=== PATIENT | female | born 1930 | race Caucasian/White ===

== ENCOUNTER 2017-10-23 15:37 | Observation (INO) ==
[2017-10-23] MEDS ORDERED: SALINE FLUSH 10ml SYRINGE IVF PRN (16:00)
--- NOTE | 2017-10-23 16:06 | Emergency Department Report ---
General Adult HPI - General Chief complaint: Medical Emergency Stated complaint: sharp pain from eat to tooth Time Seen by Provider: 10/23/17 15:52 Source: patient, EMS Mode of arrival: EMS Limitations: no limitations - History of Present Illness HPI narrative: 87-year-old female presents to the emergency department with a chief complaint of generalized weakness and subjective fever. Patient also notes that she had dental extractions done in the past week to the right upper jaw and notes mild discomfort in that area locally. Discomfort is dull and without radiation. She reports that she was so weak that she needed help getting out of her chair earlier today. She denies any trauma or injury. No other complaints or associated symptoms. She was at home when her symptoms began earlier in the day. Symptoms have been persistent in nature since onset. - Related Data Home Medications Medication Instructions Recorded Confirmed Amiodarone [Pacerone] 100 mg PO DAILY #0 07/27/13 10/23/17 Bumetanide 1 mg PO MOFR #0 07/27/13 10/23/17 Levothyroxine Sodium 75 mcg PO DAILY #0 07/28/13 10/23/17 Rivaroxaban [Xarelto] 15 mg PO DAILY 10/23/17 10/23/17 Systane Eye Drops 1 drop EACH EYE DAILY PRN 10/23/17 10/23/17 Previous Rx's Medication Instructions Recorded Doxycycline [Vibramycin] 100 mg PO BIDWM 4 Days #8 tab 10/24/17 Allergies Allergy/AdvReac Type Severity Reaction Status Date / Time amoxicillin Allergy Unknown Verified 06/19/17 12:21 hydrochlorothiazide Allergy Verified 10/23/17 16:06 Hdgzmpx-Klw-Cud Reductase AdvReac Unknown MUSCLE Verified 10/23/17 16:06 Inhibitor PAINS losartan potassium Allergy Uncoded 06/19/17 12:21 Review of Systems Constitutional: Reports: fever (subjective), weakness (generalized) Eyes: Denies: eye pain, vision change ENT: Denies: ear pain, throat pain Cardiovascular: Denies: chest pain, palpitations Respiratory: Denies: cough, dyspnea Gastrointestinal: Denies: abdominal pain, nausea, vomiting, diarrhea Genitourinary: Denies: urgency, dysuria Musculoskeletal: Denies: back pain, arthralgia Integumentary: Denies: erythema, rash Neurological: Denies: headache, numbness Psychiatric: Denies: anxiety, depression Endocrine: Denies: fatigue, heat or cold intolerance Hematological/Lymphatic: Denies: easy bleeding, easy bruising Allergic/Immunologic: Denies: facial swelling, urticaria PFSH Patient Stated Medical History Cerebrovascular Accident No Paralysis No Seizures No Syncope No Cataracts Yes: TEQUILA. Angina Yes: SEEN DR MUSTAFA MARCH 2017 Cardiac Arrhythmia Yes: Afib- no slow heart beat. Congestive Heart Failure Yes Coronary Artery Disease Yes Hypertension Yes Other Cardiology Yes: SLOW HR-SEES MOON Asthma No Bronchitis No Chronic Obstructive Pulmonary No Disease (COPD) Pneumonia No Pulmonary Edema No Pulmonary Embolism No Sleep Apnea No Tuberculosis No Other Respiratory No Diabetes Mellitus Type 1 No Diabetes Mellitus Type 2 No Cirrhosis No Gastroesophageal Reflux No Disease Gastrointestinal Bleeding No Hepatitis No Hiatal Hernia No Obstructive Bowel No Ulcer No Other GI No Hx Kidney Stones Yes Hx Renal Disease Yes: STAGE 3 CKD Hx Urinary Tract Infection Yes: HX OF Other Yes: PROLAPSED BLADDER Clotting Problems Yes: TAKES COUMADIN Osteoarthritis No Other Musculoskeletal No Anesthesia Reactions No Blood Transfusions No Chemotherapy No Malignant Hyperthermia No Other No Depression No Fibroids Yes Now No Surgical History: Oral surgery Family History: Reviewed and Noncontributory. - Social History Smoking status: Never smoker Substance use type: does not use Alcohol intake frequency: does not drink Does patient use chewing tobacco?: No Physical Exam - Limitations Limitations: no limitations - General General appearance: alert, in no apparent distress - Normal Exams: Head:: Normocephalic without trauma Eyes:: Pupils are PERRLA w/ EOMI, No scleral icterus, irritation, or foreign bodies noted ENMT:: No facial trauma, nasal exudates, pharyngeal erythema, or exudates are noted (Surgical site is clean dry and intact without sign of infection.) Dental: No fractured, loose, or missing teeth noted Neck:: Full range of motion, without adenopathy, JVD, bruits or thyromegaly Chest/Respirations:: Clear all faust (coarse breath sounds in bilateral lower lobes), with good airflow, and symmetry bilaterally Cardiovascular:: Regular rate and rhythm, without murmur or gallop, Pulses 2+ all extremities, capillary refill, <2 seconds all extremities Abdomen:: Bowel sounds positive, soft, non-tender, non-distended, no hepatosplenomegaly, masses or bruits noted Lymphatic:: No lymphadenopathy, or lymphedema noted Musculoskeletal:: No tenderness, or deformity noted, good range of motion, all extremities Integumentary:: No rashes, hives, or bruising noted, hair and nails, without abnormality Neurological:: Patient is alert, and oriented, cranial nerves, motor/sensory/ cerebellar, exams w/o gross deficits, to observation Psychiatric:: Patient exhibits, appropriate attention, emotion and affect Course Vital Signs Temperature 99.9 F 10/23/17 15:38 Pulse Rate 99 10/23/17 15:38 Respiratory Rate 18 10/23/17 15:38 Blood Pressure 169/96 H 10/23/17 15:38 Pulse Oximetry 94 10/23/17 15:38 Temperature 99.0 F 10/24/17 09:02 Pulse Rate 79 10/24/17 09:02 Respiratory Rate 16 10/24/17 09:02 Blood Pressure 161/94 H 10/24/17 09:02 Pulse Oximetry 96 10/24/17 09:02 Medical Decision Making - [facility] Narrative Medical decision making narrative: Labs/imaging were discussed in detail with the patient and family and questions are answered. Patient appears to have a right lower lobe infiltrate. Patient is given Doxycycline 100 mg iv x 1 at 1655 when CXR is reviewed and sepsis is considered. Patient lives at home with her severely demented and both the patient and her family feel like she is unsafe at home. Risks versus benefit of keeping the patient and the hospitalist discussed in detail with the patient and family and questions are answered. Patient and family both requests to remain in the hospital for observation status. Patient is admitted to the service of Dr. Rivas in improved condition. No further orders from accepting physician is in agreement with the current plan of management. Patient is given Doxycycline 100 mg iv x 1 at 1655 when CXR is reviewed and sepsis is considered. - Differential Diagnosis generalized weakness, viral syndrome, PNA, UTI - Lab Data Result diagrams: 10/24/17 04:33 10/24/17 04:33 Lab Results 10/23/17 10/23/17 10/23/17 Range/Units 16:45 16:45 16:45 WBC 8.9 (4.5-11.0) T/MM3 RBC 4.58 (4.00-5.20) M/MM3 Hgb 14.9 (12-16) GM/DL Hct 43.7 (36-46) % MCV 95.4 (80-100) UM3 MCH 32.5 (26-34) UUG MCHC 34.1 (31-37) GM/DL RDW Std Deviation 42.2 (36.9-50.2) FL Plt Count 157 (130-400) T/MM3 MPV 9.4 (9.4-12.4) UM3 Immature Gran % (Auto) Not performed Neut % (Auto) Not performed Lymph % (Auto) Not performed Laporte % (Auto) Not performed Eos % (Auto) Not performed Baso % (Auto) Not performed Neut # (Auto) Not performed Lymph # (Auto) Not performed Laporte # (Auto) Not performed Eos # (Auto) Not performed Baso # (Auto) Not performed Abs Immat Gran (auto) Not performed Neutrophils % (Manual) 84.0 H (33-66) % Band Neutrophils % 1.0 (0-6) % Lymphocytes % (Manual) 12.0 L (23-45) % Monocytes % (Manual) 3.0 (0-9.0) % Neutrophils # (Manual) 7.5 (1.8-7.7) T/MM3 Band Neutrophils # 0.1 T/MM3 Lymphocytes # (Manual) 1.1 (1-4.8) T/MM3 Monocytes # (Manual) 0.3 (0-0.8) T/MM3 RBC Morph Comment Normal INR (0.99-1.21) Turbidity < 20 (0-20) Sodium 135 (134-144) MEQ/L Potassium 3.3 L (3.6-5) MEQ/L Chloride 97 L (98-107) MEQ/L Carbon Dioxide 26 (22-30) MEQ/L Anion Gap 12 (5-15) MEQ/L BUN 9.0 (7-17) MG/DL Creatinine 0.9 (0.7-1.2) MG/DL GFR Calculation 59 BUN/Creatinine Ratio 10 (6-26) RATIO Glucose 119 H (65-110) MG/DL Calculated Osmolality 260 L (261-280) MOSM/KG Calcium 10.1 (8.4-10.2) MG/DL Total Bilirubin 1.10 (0.20-1.30) MG/DL Icterus Index < 2 (0-7) AST 21 (14-36) U/L ALT 37 (9-52) U/L Alkaline Phosphatase 101 (38-126) U/L Troponin I 0.072 (0-0.12) ng/ml Total Protein 7.9 (6.3-8.2) G/DL Albumin 4.7 (3.5-5.0) G/DL Globulin 3.2 (2.4-3.6) G/DL Albumin/Globulin Ratio 1.5 (1.1-2.2) RATIO Plasma Lactate 1.4 (0.6-2.2) MMOL/L Procalcitonin 0.06 NG/ML Specimen Hemolysis < 15 (0-25) 10/23/ Range/Units 16:49 WBC (4.5-11.0) T/MM3 RBC (4.00-5.20) M/MM3 Hgb (12-16) GM/DL Hct (36-46) % MCV (80-100) UM3 MCH (26-34) UUG MCHC (31-37) GM/DL RDW Std Deviation (36.9-50.2) FL Plt Count (130-400) T/MM3 MPV (9.4-12.4) UM3 Immature Gran % (Auto) Neut % (Auto) Lymph % (Auto) Laporte % (Auto) Eos % (Auto) Baso % (Auto) Neut # (Auto) Lymph # (Auto) Laporte # (Auto) Eos # (Auto) Baso # (Auto) Abs Immat Gran (auto) Neutrophils % (Manual) (33-66) % Band Neutrophils % (0-6) % Lymphocytes % (Manual) (23-45) % Monocytes % (Manual) (0-9.0) % Neutrophils # (Manual) (1.8-7.7) T/MM3 Band Neutrophils # T/MM3 Lymphocytes # (Manual) (1-4.8) T/MM3 Monocytes # (Manual) (0-0.8) T/MM3 RBC Morph Comment INR 1.08 (0.99-1.21) Turbidity (0-20) Sodium (134-144) MEQ/L Potassium (3.6-5) MEQ/L Chloride (98-107) MEQ/L Carbon Dioxide (22-30) MEQ/L Anion Gap (5-15) MEQ/L BUN (7-17) MG/DL Creatinine (0.7-1.2) MG/DL GFR Calculation BUN/Creatinine Ratio (6-26) RATIO Glucose (65-110) MG/DL Calculated Osmolality (261-280) MOSM/KG Calcium (8.4-10.2) MG/DL Total Bilirubin (0.20-1.30) MG/DL Icterus Index (0-7) AST (14-36) U/L ALT (9-52) U/L Alkaline Phosphatase (38-126) U/L Troponin I (0-0.12) ng/ml Total Protein (6.3-8.2) G/DL Albumin (3.5-5.0) G/DL Globulin (2.4-3.6) G/DL Albumin/Globulin Ratio (1.1-2.2) RATIO Plasma Lactate (0.6-2.2) MMOL/L Procalcitonin NG/ML Specimen Hemolysis (0-25) - Radiology Data CT Head - No acute processes. CT Maxillofacial - No acute processes. CXR - RLL infiltrate otherwise no acute processes. - EKG Data EKG #1 EKG results narrative: Sinus rhythm. Left axis deviation. Left bundle branch block. No STEMI. 98 bpm. History of left bundle branch block noted on EKG from 07/28/13. Disposition Clinical Impression: PNEUMONIA Disposition: 02 To [facility] Condition: Stable Time of Disposition: 17:37 (Admit. Dr. Rivas. ) - Seen By: physician
--- NOTE | 2017-10-23 16:33 | CT Scan Report ---
Indication: dizzy PROCEDURE: CT head/brain wo con: Encounter: Initial Comparison: None Technique: Axial CT images through the head were performed without contrast. Iterative Reconstruction dose reducing technique was utilized. FINDINGS: The ventricles are of normal size, shape, and contour for the patient's age. There are numerous areas of low attenuation in the white matter which most likely represent changes from chronic microvascular ischemia. The brainstem, cerebellum, and cerebral hemispheres otherwise have a normal morphology and CT attenuation. There is no evidence of midline displacement. No hemorrhage, signs of acute territorial stroke, mass effect, mass lesions, or edema is evident. The visualized portions of the skull base, midface, and calvarium demonstrate no abnormality. The paranasal sinuses are well aerated and free of significant disease. The tympanic and mastoid cavities appear normal. IMPRESSION: No acute intracranial abnormality or hemorrhage. .
--- NOTE | 2017-10-23 16:38 | CT Scan Report ---
Indication: recent tooth extraction PROCEDURE: CT maxillofacial wo contrast: Encounter: Initial Comparison: None Technique: Axial noncontrast CT images through the mid face were performed with coronal and sagittal two-dimensional reformats. Automated Exposure Control and Iterative Reconstruction dose reducing techniques were utilized. Findings: Prominent dental caries are noted within several teeth including the right mandibular first and second premolar and first molar. Prior dental restorations in the remaining mandibular molars. Periapical abscess noted in the right maxillary lateral incisor. The right maxillary medial incisor has been extracted, possibly recently. No evidence of acute fracture. Large dental cesar noted in the left maxillary first molar. No focal fluid collection or abscess appreciated. The globes are intact. Prior lens replacements. No intraconal inflammation. No lymphadenopathy identified. Artifact from prior dental restorations. Degenerative change in the visualized upper cervical spine. Impression: No acute fracture. Severe dental disease. .
--- NOTE | 2017-10-23 16:39 | XRay Report ---
Indication: cough PROCEDURE: XR chest 1V: Encounter: Initial Comparison: July 06, 2013 Findings: Airspace consolidation in the right lower lobe and possibly the retrocardiac left lower lobe. No pneumothorax or definite pleural effusion. Cardiac silhouette remains enlarged. Mediastinal contours and pulmonary vascularity are within normal limits. Impression: Lower lobe pneumonia, atelectasis or aspiration. .
[2017-10-23] MEDS ORDERED: DOXYCYCLINE 100 MG in NS 250ml 250 ML IV ONE (16:55)
[2017-10-23] MEDS: ACETAMINOPHEN 500 MG TABLET PO PRN ×2 (17:07→23:28)
[2017-10-23] MEDS ORDERED: NS 1,000 ML IV ONE (17:21)
--- NOTE | 2017-10-23 19:11 | History & Physical Report ---
History of Present Illness Date: 10/23/17 HPI: Pt comes in after having a fever 2-3 days ago and then feeling weak as well. Reports some nausea as well. Denies any cough, vomiting and diarrhea. Pt had a tooth extracted a few days ago and has been on amoxicillin for days. The tooth ache is doing better. Pt reports she was sitting on the bed today and slipped off due to feeling weak but denies falling or syncope. Pt felt too weak to stand up. found her sitting on the floor and brought her in to the ED. Pt denies any trauma. 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 Review of Systems All systems PM: 10-point ROS was reviewed, no additional remarkable complaints except PFSH Atrial fibrillation CHF Hypothyroid - Social History Smoking status: Never smoker Does patient use chewing tobacco?: No Medications Home Medications Medication Instructions Recorded Confirmed Type Amiodarone [Pacerone] 100 mg PO DAILY #0 07/27/13 10/23/17 History Bumetanide 1 mg PO MOFR #0 07/27/13 10/23/17 History Levothyroxine Sodium 75 mcg PO DAILY #0 07/28/13 10/23/17 History Amoxicillin [Amoxicillin] 500 mg PO TID 10/23/17 10/23/17 History Rivaroxaban [Xarelto] 15 mg PO DAILY 10/23/17 10/23/17 History Systane Eye Drops 1 drop EACH EYE DAILY PRN 10/23/17 10/23/17 History Allergies Allergy/AdvReac Type Severity Reaction Status Date / Time amoxicillin Allergy Unknown Verified 06/19/17 12:21 hydrochlorothiazide Allergy Verified 10/23/17 16:06 Raviaue-Exj-Exm Reductase AdvReac Unknown MUSCLE Verified 10/23/17 16:06 Inhibitor PAINS losartan potassium Allergy Uncoded 06/19/17 12:21 Exam Vital Signs: Temperature 99.0 F 10/23/17 18:35 Pulse Rate 99 10/23/17 15:38 Respiratory Rate 18 10/23/17 15:38 Blood Pressure 169/96 H 10/23/17 15:38 Pulse Oximetry 94 10/23/17 15:38 - Constitutional Present: no acute distress - Routine HEENT Exam Head: Present: normocephalic, atraumatic Eye: Present: EOMI ENT: Present: mucous membranes moist, external ear normal, TM's clear bilaterally - Routine Neck Exam Present: supple, full ROM - Routine Respiratory Exam Present: CTA bilaterally. Absent: dyspnea - Routine Cardiovascular Exam Present: no murmur, irregularly irregular - Routine Abdominal Exam Present: soft, non tender. Absent: distended, rebound - Routine Extremities Exam Present: edema (2+ pitting). Absent: cyanosis, clubbing - Routine Skin Exam Present: intact, dry. Absent: cyanosis - Routine Neurological Exam Present: alert, oriented X3 - Routine Psychiatric Exam Present: normal affect Results - Labs CBC & Chem 7: 10/23/17 16:45 10/23/17 16:45 Assessment and Plan Assessment and Plan: URI -Likely viral vs. PNA -Order viral panel, sputum cx's -On Doxy from ED, will cont. -CXR-->possible LLL pna Afib -Cont. home xarelto, amio CHF -Cont. home bumex -No BB? or ACEI? or statin? Hypothyroid -Cont. home levothyroxine DVT Ppx -[facility] Hospital Course Summary Disclaimer: The visit summary below is not to be considered part of the above Progress Note.
[2017-10-23] MEDS ORDERED: SYSTANE EYE DROPS 0.7ml EACH EYE PRN (19:20)
[2017-10-23 19:42] VITALS: BMI 23.1
[2017-10-24 00:57] VITALS: RESP 16
[2017-10-24] MEDS ORDERED: LEVOTHYROXINE 75 MCG TABLET PO SCH (07:30)
[2017-10-24] MEDS ORDERED: AMIODARONE 200 MG TABLET PO SCH (09:00)
[2017-10-24] MEDS ORDERED: RIVAROXABAN 15 MG TABLET PO SCH (09:00)
[2017-10-24 09:08] VITALS: BP 161/94; PULSE 79; TEMP 99; O2SAT 96
[2017-10-24] MEDS: ACETAMINOPHEN 500 MG TABLET PO PRN ×2 (10:36→15:35)
[2017-10-24] MEDS ORDERED: CARBAMIDE PEROXIDE 6.5% EAR DROPS 15ml EACH EAR ONE (13:30)
--- NOTE | 2017-10-24 15:23 | Discharge Summary ---
Discharge Information Date of admission: 10/23/17 18:18 Anticipated date of discharge: 10/24/17 Attending Physician: Sarah Rivas MD Primary care physician: Stan Daniels MD - Laboratory Labs: 10/24/17 04:33 10/24/17 04:33 History of Present Illness HPI: Pt comes in after having a fever 2-3 days ago and then feeling weak as well. Reports some nausea as well. Denies any cough, vomiting and diarrhea. Pt had a tooth extracted a few days ago and has been on amoxicillin for days. The tooth ache is doing better. Pt reports she was sitting on the bed today and slipped off due to feeling weak but denies falling or syncope. Pt felt too weak to stand up. found her sitting on the floor and brought her in to the ED. Pt denies any trauma. 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 Objective Vital signs: Temperature 99.0 F 10/24/17 09:02 Pulse Rate 79 10/24/17 09:02 Respiratory Rate 16 10/24/17 09:02 Blood Pressure 161/94 H 10/24/17 09:02 Pulse Oximetry 96 10/24/17 09:02 Height/Weight/BMI: Height 5 ft 2 in Weight 56 kg Body Mass Index 23.1 Hospital Course This is a general summary of the patient's hospital course. For more details refer to the complete medical record. Hospital course: Pt was admitted to the hospital d/t weakness and fatigue. Labs were mostly unremarkable, pt had no fevers in the hospital. Viral panel was negative. CXR showed possible left lower lobe pna. ED treated with doxycycline and that was continued. Pt did well the next day and labs and vitals were wnls. Pt was sent home on 5 total days of doxy. Pt had previously been on amoxicillin for a few days because she had a tooth extraction a little while ago. In inspection of pt' s mouth and ear, no source of infection was identified. Blood cx's were NGTD on day of discharge but pt was told to follow up on those with her pcp. Pt was informed to seek care if fevers returned after treatment of pna episode. At that time an echo may be beneficial to look for endocarditis in the setting of dental work.Pt had a fall a couple of weeks ago and so CT facial bone was done which revealed small avulsion nasal fx. Pt was informed of this and that it required monitoring only. CT head was negative. PT/OT eval recommended home with walker. Discharge Plan - Discharge Disposition Discharge Date: 10/24/17 Disposition: 01 Discharged Home, Self-Care *Condition: Stable Reason For Visit (Visit label in EMR): PNA - Discharge Medications *Discharge Medications: New Doxycycline [Vibramycin] 100 mg PO BIDWM 4 Days #8 tab Continue Rivaroxaban [Xarelto] 15 mg PO DAILY Systane Eye Drops 1 drop EACH EYE DAILY PRN PRN Reason: Dry Eyes Bumetanide 1 mg PO MOFR #0 Amiodarone [Pacerone] 100 mg PO DAILY #0 Levothyroxine Sodium 75 mcg PO DAILY #0 Discontinued Amoxicillin [Amoxicillin] 500 mg PO TID - Discharge Packet/Instructions *Diet: Regular *Activity: As tolerated *Pain Management/Treatment: NA *Expected Signs/Symptoms: mild weakenss, occasional cough *Notify Physician if: fevers or chills, falls or severe dizziness *During Business Hours Contact: primary care doctor *After Business Hours Contact: ED/Urgent care - Referrals/Follow Up - Patient Handouts - Dismissal Complete Discharge Instructions are:: Complete
--- NOTE | 2017-10-25 08:24 | CT Scan Report ---
Indication: fall, trauma to face PROCEDURE: CT facial bones wo con: Encounter: Initial Comparison: Maxillofacial CT from the prior day Technique: Axial noncontrast CT images through the mid face were performed with coronal and sagittal two-dimensional reformats. Automated Exposure Control and Iterative Reconstruction dose reducing techniques were utilized. Findings: No acute change from the very recent comparison. Please see the prior report for findings related to prior dental extractions and dental disease. No evidence of a new injury appreciated. No acute maxillofacial fracture. Impression: No change. There is a preliminary report by virtual radiologic. .
[2017-10-25] MEDS ORDERED: BUMETANIDE 1 MG TABLET PO SCH (19:20)
== END 2017-10-24 17:57 | disposition home or self-care (01) ==
LOC: ED 15:37 → MED 15:37
PROVIDERS: ADMIT Internal Medicine; ATTEND Internal Medicine